=== PATIENT | male | born 1985 | race Hispanic/Latino ===

== ENCOUNTER 2022-02-20 22:33 | Emergency (ER) | payer BC, OTHER ==
[2022-02-20] MEDS ORDERED: Ketorolac Tromethamine 30 MG/ML VIAL ONE (22:49)
== END 2022-02-20 23:35 | disposition home or self-care (01) ==
LOC: CSHERS 22:33
DX: S62.336A Displaced fracture of neck of fifth metacarpal bone, right hand, initial encounter for closed fracture (principal); W19.XXXA Unspecified fall, initial encounter
CPT/HCPCS: 29125; 96372; J1885

== ENCOUNTER 2022-03-01 22:15 | Emergency (ER) | payer BC, OTHER ==
[2022-03-01] MEDS ORDERED: Ketorolac Tromethamine 30 MG/ML VIAL ONE (23:48)
[2022-03-01] MEDS ORDERED: Morphine 4 MG/ML VIAL ONE (23:48)
[2022-03-02] MEDS ORDERED: HYDROcodone/Acetaminophen 10/325 mg Tablet ONE (00:24)
== END 2022-03-02 00:25 | disposition home or self-care (01) ==
LOC: CSHERS 22:15
DX: S62.336A Displaced fracture of neck of fifth metacarpal bone, right hand, initial encounter for closed fracture (principal); X58.XXXA Exposure to other specified factors, initial encounter
CPT/HCPCS: 29125; 96372; J1885; J2270

== ENCOUNTER 2022-03-07 19:42 | Emergency (ER) | payer BC, OTHER ==
[2022-03-07] MEDS ORDERED: Fentanyl 100 MCG/2 ML VIAL ONE (20:38)
== END 2022-03-07 21:02 | disposition home or self-care (01) ==
LOC: CSHERS 19:42
DX: G89.18 Other acute postprocedural pain (principal)
CPT/HCPCS: 96372; 99283; J3010